=== PATIENT | male | born 1940 | race Caucasian/White ===

== ENCOUNTER 2022-06-25 23:04 | Inpatient (IN) | payer MEDICARE ==
[~2022-06-25] VITALS: Ht 167.6 cm; Wt 102.1 kg
[2022-06-25 23:36] LABS: BASOPHILS ABSOLUTE AUTO 0.05 K/mm3 (0.00-0.23); BASOPHILS PERCENT AUTO 1 % (0-2); EOSINOPHILS ABSOLUTE AUTO 0.21 K/mm3 (0.00-0.68); EOSINOPHILS PERCENT AUTO 2 % (0-6); Hematocrit 34.4 % (37.0-53.0); Hemoglobin 11.4 g/dL (13.5-17.5); IMMATURE GRAN ABSOLUTE AUTO 0.04 K/mm3 (0.00-0.10); IMMATURE GRAN PERCENT AUTO 0 % (0-1); LYMPHOCYTES ABSOLUTE AUTO 0.62 K/mm3 (0.84-5.20); LYMPHOCYTES PERCENT AUTO 6 % (21-46); MONOCYTES ABSOLUTE AUTO 1.22 K/mm3 (0.16-1.47); MONOCYTES PERCENT AUTO 12 % (4-13); Mean Corpuscular HGB 31.5 pg (26.0-34.0); Mean Corpuscular HGB Conc 33.1 g/dL (31.5-36.5); Mean Corpuscular Volume 95 fL (80-100); Mean Platelet Volume 10.8 fL (9.1-12.4); NEUTROPHILS PERCENT AUTO 79 % (41-73); Platelet Count 213 K/mm3 (150-400); RDW Coefficient Variation 13.2 % (11.7-14.2); RDW Standard Deviation 45.7 fL (35.1-46.3); Red Blood Cell Count 3.62 M/mm3 (4.30-5.90); White Blood Cell Count 10.14 K/mm3 (4.00-11.30)
[2022-06-25 23:55] LABS: Albumin, Blood 3.5 g/dL (3.4-5.0); Albumin/Globulin Ratio 0.9 (0.8-1.8); Bilirubin, Total 1.2 mg/dL (0.1-1.0); Bun/Creatinine Ratio 21.2 (12.0-20.0); Calcium, Blood 9.1 mg/dL (8.5-10.1); Creatinine, Blood 0.75 mg/dL (0.60-1.20); Globulin, Blood 3.7 g/dL (2.2-4.0); Potassium, Blood 3.9 mmol/L (3.5-5.5); Total Protein, Blood 7.2 g/dL (6.4-8.2)
--- NOTE | 2022-06-26 04:28 | NUR ---
SHIFT SUMMARY: Pt arrived on unit from ED around 314. Upon arrival pt is A/Ox4 but can be impulsive, he is redirected easily. Roasterman gave pt 40mg IV push of lasix. Pt has been having lots of yellow/straw output. Pt was able to be weaned from 2L to RA. Lung sounds are clear/diminshed. Lisa was called per pt request for an update/incorming her of pt's admission. No tele calls. No c/o pain, nausea, or dizziness.
[2022-06-26 05:11] LABS: Bun/Creatinine Ratio 18.4 (12.0-20.0); Creatinine, Blood 0.76 mg/dL (0.60-1.20); Potassium, Blood 3.7 mmol/L (3.5-5.5)
[2022-06-26] MEDS ORDERED: AMLO5 PO (12:24)
[2022-06-26] MEDS ORDERED: ELIQUIS5 M2 PO (12:25)
[2022-06-26] MEDS ORDERED: FURO40 PO (12:25)
[2022-06-26] MEDS ORDERED: CARV25 PO (12:25)
[2022-06-26] MEDS ORDERED: SERT100 PO (12:27)
[2022-06-26] MEDS ORDERED: EUTHYROX50 MCG PO (12:27)
[2022-06-26] MEDS ORDERED: TELM40 PO (12:28)
[2022-06-26] MEDS ORDERED: ALPR.5 PO (12:28)
[2022-06-26] MEDS ORDERED: FLUT.05NI (12:29)
[2022-06-26] MEDS ORDERED: BREO ELLIPTA 21 EAC1 INH (12:35)
[2022-06-26] MEDS ORDERED: ALBU2.5V5 INH (12:36)
--- NOTE | 2022-06-26 12:40 | NUR ---
MED REC HOME MED RECONCILED BY THIS RN WITH OVER THE PHONE. DR. NAVA NOTIFIED OF COMPLETED MED REC
--- NOTE | 2022-06-26 17:29 | NUR ---
Shift Summary A/Ox4, pleasant/cooperative. Independent with urinal and to bathroom. Recommended ambulation in hallway, patient declined. Good appetite. Denies pain. Voiding well. Denies SOB. VSS. Temporal temp states 100 but oral temp reads 98.0 F.
--- NOTE | 2022-06-26 19:30 | NUR ---
RECEIVED REPORT FROM DAY RN. PT SITTING ON SIDE OF BED. A/O. RESP EVEN ON RA. NO NEEDS AT THIS TIME. WILL PROVIDE CARE. CALL LT IN REACH.
--- NOTE | 2022-06-26 21:30 | NUR ---
REPORT GIVEN TO MEG MARTINEZ. JUAN TO ASSUME CARE OF PT.
--- NOTE | 2022-06-27 06:48 | NUR ---
SUMMARY PT HAD NO NEW ISSUES NOTED. PT HAS SLEPT COMFORTABLY THROUGHOUT SHIFT. PT DENIES SOB. PT CURRENTLY SLEEPING IN NO DISTRESS. ROAD REPAIRER CALLED AND REPORTED PT HRT RATE DIPPED INTO THE 30'S. PT WAS ASSESSED AND FOUND TO BE IN NO DISTRESS. CALL LIGHT IN REACH.
--- NOTE | 2022-06-27 09:00 | NUR ---
HOME O2 EVAL Per V.O. from Dr. Curry, Home O2 Eval ordered.
--- NOTE | 2022-06-27 14:52 | NUR ---
Discharge Summary A/Ox4, pleasant, mostly independent. C/O sore knees from extensive ambulation in room. Discharged to home. Reviewed d/c papers with patient, questions answered. Daughter Rachel @ [phone] was notified of d/c. Transport home by friend Naresh. Med called into [facility] in [place], confirmed receipt. Patient to follow up with PCP in 72 hours for post hospital visit and RE additional shirley. Escorted by this RN. Belongings sent home.
== END 2022-06-27 14:41 | disposition home or self-care (01) | DRG 291 ==
LOC: ER 23:04 → MEDS 06-26 02:01
PROVIDERS: Emergency Medicine; ADMIT Internal Medicine
DX: I11.0 Hypertensive heart disease with heart failure (principal); I50.33 Acute on chronic diastolic (congestive) heart failure; J96.21 Acute and chronic respiratory failure with hypoxia; I48.20 Chronic atrial fibrillation, unspecified; J44.9 Chronic obstructive pulmonary disease, unspecified; I48.91 Unspecified atrial fibrillation; Z87.891 Personal history of nicotine dependence; Z79.01 Long term (current) use of anticoagulants; I27.20 Pulmonary hypertension, unspecified; I07.1 Rheumatic tricuspid insufficiency
CPT/HCPCS: 36415; 71045; 80048; 80053; 83880; 84484; 85025; 90686; 93005; 93010; 93306; 94640; 94664; 94760; 94761; 99285-25; A9270; J1940